=== PATIENT | female | born 1980 | race Caucasian/White ===

== ENCOUNTER 2019-05-29 10:24 | Emergency (ER) | payer OTHER ==
[~2019-05-29] VITALS: Ht 162.6 cm; Wt 59.0 kg
[2019-05-29] MEDS ORDERED: ZOLOFT100 MG (10:28)
[2019-05-29] MEDS ORDERED: SYNTHROID75 MCG (10:28)
[2019-05-29] MEDS ORDERED: CLONAZEPAM0.5 M1 (10:29)
[2019-05-29] MEDS ORDERED: ONDANSETRON ODT8 MG SL (21:20)
[2019-05-29] MEDS ORDERED: APETIGEN-PLUS1 EACH PO (21:20)
== END 2019-05-29 21:41 | disposition home or self-care (01) ==
LOC: ER 10:24
DX: R10.84 Generalized abdominal pain (principal)

== ENCOUNTER 2020-08-08 09:44 | Emergency (ER) | payer OTHER ==
[~2020-08-08] VITALS: Ht 162.6 cm; Wt 59.0 kg
[~2020-08-08 09:44] MED LIST: APETIGEN-PLUS1 EACH PO; CLONAZEPAM0.5 M1; ONDANSETRON ODT8 MG SL; SYNTHROID75 MCG; ZOLOFT100 MG
[2020-08-08] MEDS ORDERED: NORFLEX100MG PO (11:45)
[2020-08-08] MEDS ORDERED: KETO10TA2 PO (11:45)
== END 2020-08-08 11:52 | disposition home or self-care (01) ==
LOC: ER 09:44
DX: M54.5 Low back pain (principal); M25.551 Pain in right hip